=== PATIENT | male | born 1985 | race Native Hawaiian/Other Pacific Islander ===

== ENCOUNTER 2017-02-02 00:13 | Emergency (ER) | payer OTHER ==
[~2017-02-02] VITALS: Ht 185.4 cm; Wt 86.6 kg
[2017-02-02 01:08] LABS: POTASSIUM 3.3 mmol/L (3.6-5.2); SODIUM 134 mmol/L (136-145)
[2017-02-02 01:23] LABS: PLATELET COUNT 232 K/uL (142-355)
== END 2017-02-02 01:40 | disposition home or self-care (01) ==
LOC: ED 00:13
DX: J02.0 Streptococcal pharyngitis (principal)
CPT/HCPCS: 36415; 80053; 85027; 87804; 87880; 96372; 99283; J0696

== ENCOUNTER 2017-04-02 13:17 | Emergency (ER) | payer OTHER ==
[~2017-04-02] VITALS: Ht 185.4 cm; Wt 88.5 kg
[2017-04-02 13:28] VITALS: BP 133/75; TEMP 98
== END 2017-04-02 14:13 | disposition home or self-care (01) ==
LOC: ED 13:17
DX: Z48.02 Encounter for removal of sutures (principal)

== ENCOUNTER 2017-08-04 10:10 | Emergency (ER) | payer OTHER ==
[~2017-08-04] VITALS: Ht 185.4 cm; Wt 88.5 kg
[2017-08-04 10:20] VITALS: BP 129/84; TEMP 98
== END 2017-08-04 11:41 | disposition home or self-care (01) ==
LOC: ED 10:10
DX: S49.91XA Unspecified injury of right shoulder and upper arm, initial encounter (principal); W22.8XXA Striking against or struck by other objects, initial encounter; Y92.69 Other specified industrial and construction area as the place of occurrence of the external cause
CPT/HCPCS: 96374; 96375; 99284; J1170; J2405

== ENCOUNTER 2018-03-17 09:26 | Outpatient (CLI) | payer OTHER ==
[2018-03-17 10:23] LABS: PLATELET COUNT 276 K/uL (142-355)
== END 2018-03-17 22:03 | disposition home or self-care (01) ==
LOC: LABW 09:26
PROVIDERS: Nurse Practitioner Family
DX: Z79.899 Other long term (current) drug therapy (principal); Z51.81 Encounter for therapeutic drug level monitoring
CPT/HCPCS: 36415; 80053; 80074; 85027

== ENCOUNTER 2018-03-19 10:42 | Outpatient (CLI) | payer OTHER | END 2018-03-19 22:34 | disposition home or self-care (01) | LOC: LABW 10:42 | DX: Z79.899 Other long term (current) drug therapy (principal); Z51.81 Encounter for therapeutic drug level monitoring | CPT/HCPCS: 86480 ==

== ENCOUNTER 2018-06-07 14:42 | Emergency (ER) | payer OTHER ==
[~2018-06-07] VITALS: Ht 185.4 cm; Wt 88.5 kg
[2018-06-07 14:48] VITALS: TEMP 99.3
[2018-06-07 15:15] VITALS: BP 126/78
== END 2018-06-07 15:15 | disposition home or self-care (01) ==
LOC: ED 14:42
DX: L30.8 Other specified dermatitis (principal)
CPT/HCPCS: 99281

== ENCOUNTER 2022-06-13 16:03 | Emergency (ER) | payer OTHER ==
[~2022-06-13] VITALS: Ht 185.4 cm; Wt 88.5 kg
[2022-06-13 20:35] VITALS: BP 124/80; TEMP 97.6
== END 2022-06-13 20:40 | disposition home or self-care (01) ==
LOC: ED 16:03
DX: M54.59 Other low back pain (principal); M54.2 Cervicalgia; V49.40XA Driver injured in collision with unspecified motor vehicles in traffic accident, initial encounter; Y92.89 Other specified places as the place of occurrence of the external cause
CPT/HCPCS: 96372; 99283; J1885; J2360